=== PATIENT | male | born 1970 | race Caucasian/White ===

== ENCOUNTER 2018-07-17 11:31 | Inpatient (IN) ==
[2018-07-17] MEDS ORDERED: METHOCARBAMOL 100 MG/ML 10 ML VIAL IV STA (12:29)
[2018-07-17 12:41] LABS: Basophils # (auto) 0.06 K/uL (0-0.2); Basophils % (auto) 0.7 %; Eosinophils # (auto) 0.33 K/uL (0-0.5); Eosinophils % (auto) 3.7 %; Hematocrit (blood only) 44.7 % (42-52); Hemoglobin 16.2 g/dL (14.0-18.0); Immature Granulocytes # (auto) 0.02 K/uL (0.00-0.02); Immature Granulocytes % (auto) 0.2 %; Lymphocytes # (auto) 1.05 K/uL (1.2-3.4); Lymphocytes % (auto) 11.6 %; Mean Corpuscular Hgb Conc 36.2 g/dL (32-36); Mean Corpuscular Volume 92.5 fL (80-100); Mean Platelet Volume 8.7 fL (7.4-10.4); Monocytes # (auto) 0.63 K/uL (0.11-0.59); Neutrophils # (auto) 6.93 K/uL (1.4-6.5); Neutrophils % (auto) 76.8 %; Platelet Count 257 K/uL (130-400); RDW Coefficient of Variation 12.7 % (11.5-14.5); RDW Standard Deviation 43.2 fL (36.4-46.3); Red Blood Count 4.83 M/uL (4.7-6.1); White Blood Count 9.02 K/uL (4.8-10.8)
[2018-07-17 12:47] LABS: iSTAT Hemoglobin 16.3 g/dl (14.0-18.0); iSTAT Ionized Calcium 1.18 mmol/l (1.12-1.32)
[2018-07-17 12:50] LABS: Albumin Level 4.4 gm/dl (3.4-5.0); BUN Creatinine Ratio 13.5 (10-20); Calcium 9.4 mg/dl (8.5-10.1); Creatinine Clr Calc Pharmacy 99.1 ml/min; Est GFR (African American) 99.3; Est GFR (Non-African American) 85.7; Potassium 4.1 mmol/L (3.5-5.1)
[2018-07-17 12:52] LABS: Albumin Globulin Ratio 1.3 (0.9-2); Bilirubin,Total 1.3 mg/dl (0.1-1); Globulin 3.5 gm/dl (2.5-4.0); Total Protein 7.9 gm/dl (6.4-8.2)
[2018-07-17] MEDS ORDERED: OPTIRAY 320 125ml IV PRN (12:59)
--- NOTE | 2018-07-17 13:10 | CT Scan Report ---
CT OF THE CHEST WITHOUT CONTRAST AND CT ANGIOGRAPHY OF THE CHEST CLINICAL HISTORY: Chest pain. Evaluate for dissection. COMPARISON STUDY: Chest radiograph August 13, 2007. TECHNIQUE: Unenhanced and arterial phase imaging of the chest was performed. Intravenous injection 11 9 cc Optiray 320 IV was uneventful. Sagittal and coronal reconstructions were viewed as well as maxim al intensity projections on an independent 3-D workstation. Automated exposure control was utilized f or the study. A dose lowering technique was utilized adhering to the principles of ALARA. FINDINGS: Caliber of the thoracic aorta is normal. There is no intramural hematoma or thoracic aortic dissection. Size of the heart is normal. There is no pericardial effusion. There is at least moderat e coronary artery calcification. Central airways are patent. There is no consolidation to suggest pne umonia. No pneumothorax or pleural effusion is noted. There are multiple small solid low suspicion no dules, including a 6 mm right middle lobe nodule on image 174 of 296, a 5 mm subpleural nodule within the left lower lobe on image 250, a 4 mm right middle lobe nodule on image 190. Bony thorax and uppe r abdomen are unremarkable. Gallbladder is surgically absent. IMPRESSION: 1. No thoracic aortic dissection. 2. No acute intrathoracic findings. 3. At least moderate coronary artery calcification, greater than expected for age. 4. Several low suspicion but indeterminate solid pulmonary nodules measure up to 6 mm. These could be followed according to the attached recommendations. Please refer to below summary of Fleischner criteria recommendations for follow-up of incidental CT n odules (Teresa Mcdonnell, Guidelines for management of small pulmonary nodules detected on CT scans: A sta tement from the Fleischner Society, Radiology 237: [phone].) SOLID NODULES Solitary nodule size: <6 mm * low risk patients: no follow-up needed * high risk patients: optional CT at 12 months Solitary nodule size: 6-8 mm * low risk patients: follow-up at 6-12 months, then consider further follow-up at 18-24 months * high risk patients: initial follow-up CT at 6-12 months and then at 18-24 months if no change Solitary nodule size: >8 mm * either low or high risk patients - consider follow-up CT at 3 months, and/or CT-PET, and/or biopsy Multiple nodules size: <6 mm * low risk patients: no routine follow-up * high risk patients: optional CT at 12 months Multiple nodules size: 6-8 mm * low risk patients: follow-up at 3-6 months, then consider further follow-up at 18-24 months * high risk patients: follow-up at 3-6 months, then at 18-24 months if no change Electronically signed by: Aidan Hodges M.D. 07/17/2018 1:09 PM
[2018-07-17] MEDS ORDERED: CYCLOBENZAPRINE HCL 10 MG TAB PO STA (13:11)
[2018-07-17] MEDS ORDERED: CYCLOBENZAPRINE HCL 10 MG TAB PO ONE (13:12)
[2018-07-17] MEDS ORDERED: KETOROLAC 30 MG/ML VIAL IV STA (13:20)
[2018-07-17] MEDS ORDERED: NITROGLYCERIN SL 0.4 MG/TAB TAB ONE (14:04)
[2018-07-17] MEDS ORDERED: NITROGLYCERIN SL 0.4 MG/TAB TAB SL STA (14:05)
[2018-07-17] MEDS ORDERED: ACETAMINOPHEN 1000 MG/100 ML IV IV STA (14:41)
[2018-07-17] MEDS ORDERED: NITROGLYCERIN 2% OINTMENT 30GM TUBE EXT ONE (15:41)
--- NOTE | 2018-07-17 16:27 | History & Physical Report ---
Date of Service July 17, 2018 Assessment & Plan (1) CAD (coronary artery disease): Patient is a 47-year-old male with no known past medical history who presents with chest discomfort starting earlier today and was found to have moderate CAD. -Chest pain came on when lifting weights vigorously -Initial EKG with T wave inversion in inferior leads and subtle ST depression in II and aVF -Initial troponin negative but repeat troponin elevated at 0.28 -Chest CTA with at least moderate coronary artery calcification, greater than expected for age -Cardiac catheterization performed: * 70% ostial acute marginal branch vessel of RCA occluded * Otherwise, mild to moderate non-obstructive CAD -Given 75mg plavix this evening, scheduled for 75mg in AM -Started on Statin -Check troponin at 2200 -Medical therapy recommended (2) Tobacco abuse: Counselled on importance of tobacco cessation Pulmonary Nodule: Several pulmonary Nodules noted on CT scan Advise to quit smoking FU as outpatient DVT Ppx: SCDs for now Code status: FULL PCP: No PCP. Will need to establish care upon discharge. Dispo: Admitted to telemetry. Plan to return home once medically stable. Patient seen in collaboration with Dr. Mccarty. Please see addendum. History of Present Illness Chief Complaint: chest pain Primary Care Provider: NO PCP Patient is a 47-year-old male with no known past medical history who presents with chest discomfort starting earlier today. Patient was working out at gym and lifting weights when he developed sudden onset, central chest pain that he described as burning, constant and radiating to his back and bilateral shoulder blades. Denies any associated shortness of breath, nausea or vomiting. Has history of chest discomfort from torn muscles in the past, but that pain was less severe. When he presented to in the ED, was given Toradol, Flexeril and sublingual nitroglycerin with resolution of chest pain. Denies personal history of HTN, HLD, heart disease or diabetes. Chews tobacco daily and drinks approximately 56 beers daily. No family history of heart disease. Does not currently have a PCP. Initial EKG with T wave inversion in inferior leads and subtle ST depression in II and aVF. Initial troponin negative but repeat troponin elevated at 0.28. Chest CTA with at least moderate coronary artery calcification, greater than expected for age. ED physician consulted cardiology, and Dr. Byrd reviewed stat echo at bedside. No wall motion abnormality noted but due to EKG changes and elevated troponin, patient was taken for cardiac catheterization. Allergies Allergy/AdvReac Type Severity Reaction Status Date / Time Penicillins Allergy Unknown Verified 07/17/18 12:33 Home Medications Home Medications Medication Instructions Recorded Confirmed Type No Known Home Medications 07/17/18 07/17/18 History Past Med/Surg History Medical History Tobacco abuse (Chronic) Dyslipidemia, goal LDL below 70 (Chronic) Coronary artery calcification (Chronic) Coronary artery calcification (Chronic) Dyslipidemia, goal LDL below 70 (Chronic) Tobacco use disorder (Chronic) Family History Other No pertinent family history Social History Current Living Situation: Spouse and Family current occupational status: employed Other Information That Helps Us Care for You: No Feels Safe at Home: Yes Safety Concerns: Feels Safe At This Time Smoking Status: Never smoker Tobacco Type: smokeless tobacco Do You Dip or Chew Tobacco: Yes (1/2 can/day) Hx Alcohol Use: Yes Alcohol type: beer Alcohol Intake Frequency: 3 or more drinks per day Hx Substance Use: No Beliefs That Will Affect Care: None Communication Ability: Effective Electrochemist Required: No Review of Systems All systems reviewed & are unremarkable except as noted in HPI & below Physical Exam 2 Vital Signs (Past 24 Hours): Last Vital Signs Temp 36.6 C 07/17/18 11:33 Pulse 66 07/17/18 15:43 Resp 18 07/17/18 15:43 BP 137/94 07/17/18 15:43 Pulse Ox 98 07/17/18 15:43 Physical Exam: General Appearance: WD/WN, anxious appearing Head: normocephalic, atraumatic Eyes: normal inspection, PERRL, EOMI ENT: hearing grossly normal, pharynx normal (moist mucous membranes) Neck: supple, no JVD, no adenopathy Respiratory/Chest: lungs clear to auscultation. No wheezes, rales or rhonci. No respiratory distress or accessory muscle use Cardiovascular: regular rate, rhythm, no murmur, normal peripheral pulses Abdomen/GI: normal bowel sounds, soft, non-tender to palpation Extremities/Musculoskelatal: normal inspection, no calf tenderness, normal capillary refill, no pedal edema Neurologic/Psych: alert, normal mood/affect, oriented x 3 Skin: normal color, warm/dry Results & Data Laboratory Results Short CBC 07/17/18 Range/Units 12:00 WBC 9.02 (4.8-10.8) K/uL Hgb 16.2 (14.0-18.0) g/dL Hct 44.7 (42-52) % Plt Count 257 (130-400) K/uL BMP 07/17/18 12:00 Sodium 135 L Potassium 4.1 Chloride 102 Carbon Dioxide 22 BUN 14 Creatinine 1.04 Glucose 97 Calcium 9.4 Liver Function 07/17/18 Range/Units 12:00 Total Bilirubin 1.3 H (0.1-1) mg/dl AST 31 (15-37) U/L ALT 58 (12-78) U/L Alkaline Phosphatase 58 (45-117) U/L Albumin 4.4 (3.4-5.0) gm/dl Diagnostic Findings Chest CTA: IMPRESSION: 1. No thoracic aortic dissection. 2. No acute intrathoracic findings. 3. At least moderate coronary artery calcification, greater than expected for age. 4. Several low suspicion but indeterminate solid pulmonary nodules measure up to 6 mm. These could be followed according to the attached recommendations. ECG Findings: + ST depression (subtle depression in II and aVF) and + T-wave inversion (inferior leads) Code Status & VTE Plan Code Status FULL VTE Prophylaxis Plan VTE Prophylaxis will be ordered: Yes Supervising Physician Co-Signing Physician Notes Attending Note: Patient is seen and examined at bedside after the cardiac cath. Currently patient is chest pain free. Offers no complaints. On Exam patient is well built , lungs CTA, S1, S2, No mumur, benign abdomen, no pedal edema, AAAOX3, no focal deficits. I personally reviewed the chart. ECHO showed no wall motion abnormalities. Appreciate Cardiology Help. Risk factor modification for moderate CAD. Patient's care is coordinated with Elsa Rome PA-C. Please refer to the documentation above for details of patient's presentation and for discussion of other issues.
[2018-07-17] MEDS ORDERED: ASPIRIN CHEW 324 MG PO STA (16:31)
--- NOTE | 2018-07-17 16:31 | Cardiology Consultation ---
Date of Consultation July 17, 2018 Assessment & Plan (1) NSTEMI (non-ST elevated myocardial infarction): The risks, benefits, and alternatives to cardiac catheterization were discussed with the patient at length. Both he and his are agreeable to procedure and percutaneous intervention if indicated. He is a drug-eluting stent candidate. Will initiate intravenous heparin therapy, aspirinm and add high intensity statin, atorvastatin 80 mg daily. (2) Coronary artery calcification: (3) Dyslipidemia, goal LDL below 70: (4) Tobacco abuse: History of Present Illness Reason for Consultation: Elevated Trop Requesting Physician: Dr. Chris Cook Attending Physician: Dr. Mcfarland History of Present Illness 47-year-old male patient presents emergency department with chest and back discomfort. Patient has been exercising vigorously. Noted onset of substernal chest burning with radiation to his back. He was sent for CT angiogram of the chest to exclude presence of dissection. CTA was negative. Initial troponins undetectable. ECG on presentation demonstrates sinus rhythm with inferior T wave inversion as well as subtle ST depression in leads II and aVF. Patient treated with sublingual nitroglycerin, Nitropaste, Flexeril, and Toradol. Currently chest pain-free. A stat bedside 2D echocardiogram was performed demonstrating normal left ventricular wall motion. He is currently pain-free. Second set of troponins came back elevated at 0.28. Personal review of CT Corrie of the chest reveals extensive coronary artery calcification which is abnormal for patient age. Denies history of coronary disease, dyslipidemia, hypertension, rheumatic fever as a child. Denies family history of premature CAD. He chews snuff however does not smoke cigarettes. is present at bedside. Allergies Allergy/AdvReac Type Severity Reaction Status Date / Time Penicillins Allergy Unknown Verified 07/17/18 12:33 Home Medications Home Medications Medication Instructions Recorded Confirmed Type No Known Home Medications 07/17/18 07/17/18 History Patient History Medical History Coronary artery calcification Dyslipidemia, goal LDL below 70 No known health problems Family History Other No pertinent family history Social History Feels Safe at Home: Yes Smoking Status: Never smoker Review of Systems Pertinent positives noted per HPI, comprehensive 10 system review otherwise negative. Physical Exam 2 Vital Signs (Past 24 Hours): Last Vital Signs Temp 36.6 C 07/17/18 11:33 Pulse 66 07/17/18 15:43 Resp 18 07/17/18 15:43 BP 137/94 07/17/18 15:43 Pulse Ox 98 07/17/18 15:43 Physical Exam: General: NAD, AAO x3, well nourished. HEENT: Normocephalic. Atraumatic. Conjunctiva pink, no scleral icterus. Neck: No carotid bruits, the carotid upstrokes are brisk. No JVD. No HJR Heart: Regular normal S-1 and S-2 no S-3 or S-4 gallop. No murmurs or rub appreciated. PMI is not displaced. No RV heave. Lungs: Clear bilateral without rales , rhonchi, or wheeze. Abdomen: Normal bowel sounds. Soft. Nontender. No masses or organomegaly. No abdominal bruits. Extremities: No clubbing, cyanosis, or edema. Pulses: radial=2/4, Dorsalis pedis =2/4, posterior tibial=2/4. Neuro: Cranial nerves grossly intact. No focal motor deficit.
[2018-07-17] MEDS ORDERED: ASPIRIN CHEW 324 MG ONE (16:32)
--- NOTE | 2018-07-17 16:35 | Pre Anesthesia Assessment ---
Date of Service July 17, 2018 Pre Sedation Assessment Vital Signs Temp Pulse Pulse Resp BP BP Pulse Ox 07/17/18 15:43 66 18 137/94 98 07/17/18 13:48 70 18 154/97 H 98 07/17/18 12:38 97 07/17/18 11:33 36.6 C 78 20 148/98 H 100 Cardiovascular RRR, no murmur, no edema Respiratory normal respiratory effort, lungs clear to auscultation Pre-Sedation Airway Assessment Smoking Status: Never smoker Mallampati Class: II Procedure Planning Contraindications for Sedation: none Current Medications Reviewed: Yes Notes The planned sedation has been discussed with the patient. Informed Consent was obtained. I have identified the patient, determined the appropriateness of sedation and have assessed the patient immediately prior to the procedure. All medicine(s) and interventions are by my order.
[2018-07-17] MEDS ORDERED: HEPARIN 25000 UNIT/500 ML D5W IV ONE (16:40)
[2018-07-17] MEDS ORDERED: LIDOCAINE HCL 1% 20 ML VIAL ONE (16:42)
[2018-07-17] MEDS ORDERED: HEPARIN SOD 5,000 UNIT/0.5 ML VIAL ONE (16:44)
[2018-07-17] MEDS ORDERED: NiCARDipine HCL INJ 2.5 MG/ML 10 ML AMP ONE (17:37)
[2018-07-17] MEDS ORDERED: HEPARIN (PORCINE) 1000 UNIT/ML 10 ML (CATH LAB USE ONLY) ONE (17:37)
[2018-07-17] MEDS ORDERED: fentaNYL citrate 100 MCG/2 ML VIAL ONE (17:37)
[2018-07-17] MEDS ORDERED: MIDAZOLAM HCL 1 MG/ML 2ML VIAL ONE ×2 (17:37→17:52)
[2018-07-17] MEDS ORDERED: NITROGLYCERIN/D5W 100MCG/ML 20ML SYR ONE (17:38)
--- NOTE | 2018-07-17 18:38 | Cardiac Catheterization ---
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 End 1819. Sedation monitor: Yobani LO Procedural Complication(s) None Disposition PCU ACC Data: Agricultural Equipment Operator Cardiac Status Clinical evaluation leading to the procedure CAD Presenation: Non STEMI Anginal Classification: CCS IV Heart Failure: No Imaging Studies Past 6 Months: Yes Stress Studies Past 6 Months: No STEMI OR Non-STEMI Symptom Onset Date: 07/17/18 Symptom Onset Time: 13:29 Thrombolytics: No Coronary Anatomy Dominant: Right Left Main (% Stenosis): Normal LAD (% Stenosis): Proximal (20%), Mid (20%) and Distal (10%) D1 (% Stenosis): Proximal (20%) D2 (% Stenosis): Proximal (30%) and Mid (30%) Circumflex (% Stenosis): Mid (10-20% diffuse) OM1 (% Stenosis): Ostial (50% small 1-1.5mm vessel) RCA (% Stenosis): Proximal (30%) and Mid (Diffuse, calcified, 20-30%) R PDA (% Stenosis): Mid (30%) R PL1 (% Stenosis): Proximal (30%) R PL2 (% Stenosis): Normal AM (% Stenosis): Ostial (70%) Diagnostic Physicians Name: Kel Byrd DO Closure Device Recommendations: Medical Therapy and/or Counseling Intraprocedure Events Significant Disection: No Perforation: No
[2018-07-17] MEDS ORDERED: ACETAMINOPHEN 325 MG TAB PO PRN (18:41)
[2018-07-17] MEDS ORDERED: CLOPIDOGREL BISULFATE 75 MG TAB PO ONE (18:43)
--- NOTE | 2018-07-17 18:46 | Post Anesthesia Assessment ---
Date of Service July 17, 2018 Post Sedation Assessment Vital Signs Temp Pulse Pulse Resp BP BP Pulse Ox 07/17/18 18:30 75 18 138/80 07/17/18 18:25 72 18 144/80 H 98 07/17/18 15:43 66 18 137/94 98 07/17/18 13:48 70 18 154/97 H 98 07/17/18 12:38 97 07/17/18 11:33 36.6 C 78 20 148/98 H 100 Recovery Score Activity: Moves 4 extremities Respiration: Deep Breath/Cough Circulation: +/-20% PreAnes Value Consciousness: Fully Awake Oxygen Saturation: > 92% On Room Air Post Anesthesia Score: 10 Post Sedation Plan On clinical assessment, the patient appears to have tolerated the sedation without complications. Patient is recovering as anticipated. Patient will continue to be monitored by nursing and may be discharged when sedation discharge criteria are met per below protocol. Upon Completions of procedure and additional 15 minutes continue every 5 minute vital signs and the P.A.R. score; then discharge to a Phase I or Fast Track to Phase II per the following guidelines: * Discharge Patient to appropriate Phase II area if PAR is 8 or greater or return to pre- procedure baseline. The post - procedure orders will be as directed. * If PAR score is less than 8 or not return to pre-procedure baseline then patient will follow Phase I monitoring till PAR is reached for Phase II. The Phase I may be done in procedure room or may call to secure a Phase I area. * If naloxone or flumazenil are used for reversal, hold in Phase I for continued monitoring from when last reversal dose was given for a minimum of 60 minutes or longer pending the nurse and/or physician discretion of patient condition before discharge to Phase II. Please call the Sedation Physician to re-evaluate and complete post-note for discharge to Phase II area. Do NOT discharge from procedure sedation or Phase 1 until post- sedation evaluation note is complete by procedure /sedation MD Sedation Discharge Instructions to be given to the patient at discharge to home.
[2018-07-17] MEDS ORDERED: NITROGLYCERIN SL 0.4 MG/TAB TAB SL PRN (18:47)
[2018-07-17] MEDS ORDERED: ZOLPIDEM TARTRATE 5 MG TAB PO PRN (20:33)
[2018-07-17] MEDS ORDERED: ATORVASTATIN 40 MG TAB PO SCH (21:00)
--- NOTE | 2018-07-17 21:14 | Emergency Department Note ---
Entered by Alexandre Allison acting as a scribe for History of Present Illness General Chief complaint: Pain (Generalized) Stated complaint: BACK OF SHOULDER PAIN DOWN ARMS INTO BACK Source: patient History of Present Illness Provider complaint: chest pain Onset (ago): day(s) (today at 0930) Location: chest Radiation: back (between shoulder blades) Pain Consistency: + other (chest pain) Maximum Pain Intensity: 9 Quality: + dull and + other ("take your breath away pain") Exacerbated By: + other (laying down) Associated symptoms: no shortness of breath The patient is a 47 year old male who presents to the Emergency Room with complaints of chest pain that started while he was doing pull ups around 0930 today. The patient states he thought it was just heartburn, but now reports that it is now radiating to his back between his shoulder blades. He reports it is an dull, "take your breath away" pain. He states he has 3 herniated discs in his lower back, but states that this pain is different from his low back pain and that he has never experienced this before. He states that laying down worsens the pain. The patient admits to using tobacco. He denies any shortness of breath, radiation to any place other than his back, any long trips or immobilization, or any cocaine use. He also denies any medical history of clots or a family history of aneurysms. Home Medications Home Medications Medication Instructions Recorded Confirmed Type No Known Home Medications 07/17/18 07/17/18 History Allergies Allergy/AdvReac Type Severity Reaction Status Date / Time Penicillins Allergy Unknown Verified 07/17/18 12:33 Past Med/Surg History Medical History Tobacco abuse (Chronic) Dyslipidemia, goal LDL below 70 (Chronic) Coronary artery calcification (Chronic) Coronary artery calcification (Chronic) Dyslipidemia, goal LDL below 70 (Chronic) Tobacco use disorder (Chronic) Family History Other No pertinent family history Social History Current Living Situation: Spouse and Family current occupational status: employed Other Information That Helps Us Care for You: No Feels Safe at Home: Yes Safety Concerns: Feels Safe At This Time Smoking Status: Never smoker Tobacco Type: smokeless tobacco Do You Dip or Chew Tobacco: Yes (1/2 can/day) Hx Alcohol Use: Yes Alcohol type: beer Alcohol Intake Frequency: 3 or more drinks per day Hx Substance Use: No Beliefs That Will Affect Care: None Communication Ability: Effective Cnc Machinist Required: No Review of Systems See HPI for pertinent positives & negatives. and A total of 10 systems reviewed and were otherwise negative Physical Exam Vital Signs Vital Signs - 24 hr 07/17/18 11:33 07/17/18 12:38 07/17/18 13:48 Temperature 36.6 C Temperature Source Oral Sepsis Recent Fever Within 48 Hours No Sepsis Action Taken by Nursing No Action Required Pulse Rate 78 Pulse Rate [Left Brachial] 70 Pulse Rhythm Regular Pulse Rhythm [Left Brachial] Pulse Strength [Left Brachial] Respiratory Rate 20 18 Respiratory Effort / Characteristics Non-Labored Non-Labored Spontaneous Respiratory Depth Normal Normal Respiratory Pattern Regular Blood Pressure 148/98 H Blood Pressure [Left Arm] 154/97 H Blood Pressure Mean 114 Blood Pressure Mean [Left Arm] 116 Blood Pressure Position [Left Arm] Lying Pulse Oximetry 100 97 98 Oxygen Delivery Method Room Air Room Air Room Air 07/17/18 15:43 07/17/18 18:25 07/17/18 18:30 Temperature Temperature Source Sepsis Recent Fever Within 48 Hours Sepsis Action Taken by Nursing Pulse Rate 69 Pulse Rate [Left Brachial] 66 72 75 Pulse Rhythm Pulse Rhythm [Left Brachial] Regular Regular Pulse Strength [Left Brachial] Normal Normal Respiratory Rate 18 18 18 Respiratory Effort / Characteristics Non-Labored Spontaneous Non-Labored Spontaneous Non-Labored Spontaneous Respiratory Depth Normal Normal Normal Respiratory Pattern Regular Regular Regular Blood Pressure Blood Pressure [Left Arm] 137/94 144/80 H 138/80 Blood Pressure Mean Blood Pressure Mean [Left Arm] 108 101 99 Blood Pressure Position [Left Arm] Lying Sitting Sitting Pulse Oximetry 98 98 Oxygen Delivery Method Room Air Room Air Room Air 07/17/18 18:46 07/17/18 19:05 07/17/18 19:13 Temperature 37.2 C 37.1 C 37.2 C Temperature Source Oral Oral Oral Sepsis Recent Fever Within 48 Hours Sepsis Action Taken by Nursing Pulse Rate Pulse Rate [Left Brachial] 66 63 68 Pulse Rhythm Pulse Rhythm [Left Brachial] Pulse Strength [Left Brachial] Respiratory Rate 17 19 17 Respiratory Effort / Characteristics Respiratory Depth Respiratory Pattern Blood Pressure Blood Pressure [Left Arm] 135/77 133/83 133/82 Blood Pressure Mean Blood Pressure Mean [Left Arm] 96 99 99 Blood Pressure Position [Left Arm] Lying Lying Lying Pulse Oximetry 98 63 L 98 Oxygen Delivery Method Room Air Room Air 07/17/18 19:26 07/17/18 20:00 07/17/18 20:29 Temperature 37.2 C 36.7 C 37.1 C Temperature Source Oral Oral Oral Sepsis Recent Fever Within 48 Hours Sepsis Action Taken by Nursing Pulse Rate Pulse Rate [Left Brachial] 64 68 65 Pulse Rhythm Pulse Rhythm [Left Brachial] Pulse Strength [Left Brachial] Respiratory Rate 17 18 19 Respiratory Effort / Characteristics Respiratory Depth Respiratory Pattern Blood Pressure Blood Pressure [Left Arm] 130/73 142/80 H 170/83 H Blood Pressure Mean Blood Pressure Mean [Left Arm] 92 100 112 Blood Pressure Position [Left Arm] Lying Lying Lying Pulse Oximetry 98 96 98 Oxygen Delivery Method Room Air Room Air Room Air Constitutional: Vital signs reviewed. Eyes: Pupils are equal round reactive to light. Conjunctiva are noninjected. ENT: Pharynx is clear without erythema or exudate. Mucous membranes are moist. Neck supple without meningeal signs. Respiratory: Clear to auscultation bilaterally. Breath sounds are equal bilaterally. Cardiovascular: Regular rate and rhythm. No rubs or gallops. Normal distal pulses and equivalent blood pressures. GI: Soft, nondistended and nontender. Bowel sounds are present. Musculoskeletal: No peripheral edema. No lower extremity tenderness. Spasm of the rhomboid muscles bilaterally. Integumentary: No cyanosis. Neurological: The patient is awake and alert. No focal deficits. Psychiatric: Normal affect. Course 1224: Past medical records reviewed. The patient was evaluated in room B3, and a complete history and physical examination were performed. 1402: I reevaluated the patient and he states that he is still having tightness in his chest and in his back. The patient states he had a difficult time putting up hi arms for the CT scan. 1437: I reevaluated the patient and he reports that there was absolutely no change in his symptoms with the nitro glyceride. He states that pressing on his back and chest muscles does help. We will do a second troponin. 1530: I spoke with Joycelyn Cerna PA-C. 1535: I spoke with the patient about his response to the troponin and he reports he still has chest pain that he rates as a 4/10 in severity as well as back pain. We will do a repeat ECG and I will page cardiology. 1539: I spoke with [facility]. I will order an echo cardiogram and he will evaluate the results. 1550: I spoke with hospitalist about different cardiology requests. Dr. Joe requested to hold the Heparin for now. 1604: I spoke with [facility], and he reports that he did not see any wild abnormalities on the echo cardiogram. 1607: I checked on the patient and he reports that his chest pain has resolved. 1616: I spoke with [facility], and he stated that he will take the patient to the cardiac catheterization lab. 1633: I spoke with [facility], and he said to start the patient on Heparin. Administered Medications Discontinued Medications Acetaminophen (Ofirmev) 1,000 mg IV NOW STA Stop: 07/17/18 14:42 Last Admin: 07/17/18 14:53 Dose: 1,000 mg Aspirin (Aspirin) Confirm Administered Dose 324 mg .ROUTE .STK-MED ONE Stop: 07/17/18 16:33 Last Admin: 07/17/18 16:47 Dose: 324 mg Clopidogrel Bisulfate (Plavix) 75 mg PO NOW ONE Stop: 07/17/18 18:44 Last Admin: 07/17/18 19:34 Dose: 75 mg Cyclobenzaprine HCl (Flexeril) 10 mg PO NOW STA Stop: 07/17/18 13:12 Last Admin: 07/17/18 13:17 Dose: 10 mg Cyclobenzaprine HCl (Flexeril) Confirm Administered Dose 10 mg PO .STK-MED ONE Stop: 07/17/18 13:13 Last Admin: 07/17/18 13:17 Dose: Not Given Fentanyl Citrate (Fentanyl Citrate) Confirm Administered Dose 100 mcg .ROUTE .STK-MED ONE Stop: 07/17/18 17:38 Last Increment: 07/17/18 18:18 Dose: 25 mcg Heparin Sodium (Porcine) (Heparin Sodium (Porcine)) Confirm Administered Dose 10 ,000 units .ROUTE .STK-MED ONE Stop: 07/17/18 16:45 Last Admin: 07/17/18 16:47 Dose: Not Given Heparin Sodium (Porcine) (Heparin Iv Bolus (Lithographic Plate Maker Use Only)) Confirm Administered Dose 10,000 units .ROUTE .STK-MED ONE Stop: 07/17/18 17:38 Last Admin: 07/17/18 18:18 Dose: 5,000 units Heparin Sodium/Dextrose () 1 ea N/A NOW STA; Protocol Stop: 07/17/18 16:35 Last Admin: 07/17/18 16:47 Dose: 1 ea Heparin Sodium/Dextrose (Heparin Sodium/Dextrose) Confirm Administered Dose 25, 000 units IV .STK-MED ONE Stop: 07/17/18 16:41 Last Admin: 07/17/18 16:46 Dose: Not Given Heparin Sodium/Sodium Chloride (Heparin Sod/Nss 2 Units/Ml) Confirm Administered Dose 2,000 units IV .STK-MED ONE Stop: 07/17/18 17:39 Last Admin: 07/17/18 17:51 Dose: 2,000 units Ioversol (Optiray 320 125ml) 119 ml IV ONCE PRN PRN Reason: Interaction Checking Stop: 07/21/18 12:58 Last Admin: 07/17/18 12:59 Dose: 119 ml Ketorolac Tromethamine (Toradol) 10 mg IV NOW Stop: 07/17/18 13:21 Last Admin: 07/17/18 13:35 Dose: 10 mg Lidocaine HCl (Xylocaine 1% (Local)) Confirm Administered Dose 20 ml .ROUTE .STK -MED ONE Stop: 07/17/18 16:43 Last Admin: 07/17/18 17:49 Dose: 20 ml Methocarbamol (Robaxin) 1,000 mg IV NOW STA Stop: 07/17/18 12:30 Last Admin: 07/17/18 13:16 Dose: Not Given Midazolam HCl (Versed) Confirm Administered Dose 2 mg .ROUTE .STK-MED ONE Stop: 07/17/18 17:38 Last Admin: 07/17/18 18:18 Dose: 3 mg Midazolam HCl (Versed) Confirm Administered Dose 2 mg .ROUTE .STK-MED ONE Stop: 07/17/18 17:53 Last Admin: 07/17/18 18:19 Dose: Not Given Nicardipine HCl (Cardene) Confirm Administered Dose 25 mg .ROUTE .STK-MED ONE Stop: 07/17/18 17:38 Last Admin: 07/17/18 17:51 Dose: 25 mg Nitroglycerin (Nitrostat) Confirm Administered Dose 0.4 mg .ROUTE .STK-MED ONE Stop: 07/17/18 14:05 Last Admin: 07/17/18 14:07 Dose: Not Given Nitroglycerin (Nitrostat) 0.4 mg SL NOW STA Stop: 07/17/18 14:06 Last Admin: 07/17/18 14:07 Dose: 0.4 mg Nitroglycerin (Nitro-Bid 2%) 1 inch EXT NOW ONE Stop: 07/17/18 15:42 Last Admin: 07/17/18 15:56 Dose: 1 inch Nitroglycerin/Dextrose (Nitroglycerin/D5w 100 Mcg/Ml 20ml Syringe) Confirm Administered Dose 2,000 mcg .ROUTE .STK-MED ONE Stop: 07/17/18 17:39 Last Admin: 07/17/18 17:51 Dose: 2,000 mcg Medical Decision Making Differential Diagnosis Muscle spasm, aortic dissection, pulmonary embolism, [place], GERD. Medical Records Attestation: I reviewed the patient's medical records. Home Medications Current Medication List: was personally reviewed by me Laboratory Data Attestation: I reviewed the patient's lab results. Result diagrams: 07/17/18 12:00 07/17/18 12:00 Lab Results 07/17/18 07/17/18 07/17/18 Range/Units 12:00 12:00 12:33 WBC 9.02 (4.8-10.8) K/uL RBC 4.83 (4.7-6.1) M/uL Hgb 16.2 (14.0-18.0) g/dL POC Hgb 16.3 (14.0-18.0) g/dl Hct 44.7 (42-52) % POC Hct 48 (42-52) % MCV 92.5 (80-100) fL MCH 33.5 (25-34) pg MCHC 36.2 H (32-36) g/dL RDW Std Deviation 43.2 (36.4-46.3) fL RDW Coeff of Lorraine 12.7 (11.5-14.5) % Plt Count 257 (130-400) K/uL MPV 8.7 (7.4-10.4) fL Immature Gran % (Auto) 0.2 % Neut % (Auto) 76.8 % Lymph % (Auto) 11.6 % [place] % (Auto) 7.0 % Eos % (Auto) 3.7 % Baso % (Auto) 0.7 % Immature Gran # (Auto) 0.02 (0.00-0.02) K/uL Neut # (Auto) 6.93 H (1.4-6.5) K/uL Lymph # (Auto) 1.05 L (1.2-3.4) K/uL [place] # (Auto) 0.63 H (0.11-0.59) K/uL Eos # (Auto) 0.33 (0-0.5) K/uL Baso # (Auto) 0.06 (0-0.2) K/uL POC Sodium 137 (135-144) mEq/L Sodium 135 L (136-145) mmol/L POC Potassium 4.0 (3.3-5.0) mEq/L Potassium 4.1 (3.5-5.1) mmol/L POC Chloride 100 L (101-112) mEq/L Chloride 102 (98-107) mmol/L Carbon Dioxide 22 (21-32) mmol/L POC Total CO2 22 L (24-31) mEq/l Anion Gap 10.0 (3-11) POC Anion Gap 20.0 (16-25) mmol/L POC BUN 14 (7-18) mg/dl BUN 14 (7-18) mg/dl Creatinine 1.04 (0.6-1.4) mg/dl POC Creatinine 1.2 (0.6-1.3) mg/dl Est Cr Clr Drug Dosing 99.1 ml/min Est GFR ( Amer) 99.3 Est GFR (Non-Af Amer) 85.7 BUN/Creatinine Ratio 13.5 (10-20) Glucose 97 (70-99) mg/dl POC Glucose (other) 95 (70-99) mg/dl Calcium 9.4 (8.5-10.1) mg/dl POC Ioniz Calcium William 1.18 (1.12-1.32) mmol/l Total Bilirubin 1.3 H (0.1-1) mg/dl AST 31 (15-37) U/L ALT 58 (12-78) U/L Alkaline Phosphatase 58 (45-117) U/L POC Troponin I (0-0.045) ng/ml Total Protein 7.9 (6.4-8.2) gm/dl Albumin 4.4 (3.4-5.0) gm/dl Globulin 3.5 (2.5-4.0) gm/dl Albumin/Globulin Ratio 1.3 (0.9-2) Lipase 169 (73-393) U/L 07/17/18 07/17/18 Range/Units 12:36 14:54 WBC (4.8-10.8) K/uL RBC (4.7-6.1) M/uL Hgb (14.0-18.0) g/dL POC Hgb (14.0-18.0) g/dl Hct (42-52) % POC Hct (42-52) % MCV (80-100) fL MCH (25-34) pg MCHC (32-36) g/dL RDW Std Deviation (36.4-46.3) fL RDW Coeff of Lorraine (11.5-14.5) % Plt Count (130-400) K/uL MPV (7.4-10.4) fL Immature Gran % (Auto) % Neut % (Auto) % Lymph % (Auto) % [place] % (Auto) % Eos % (Auto) % Baso % (Auto) % Immature Gran # (Auto) (0.00-0.02) K/uL Neut # (Auto) (1.4-6.5) K/uL Lymph # (Auto) (1.2-3.4) K/uL [place] # (Auto) (0.11-0.59) K/uL Eos # (Auto) (0-0.5) K/uL Baso # (Auto) (0-0.2) K/uL POC Sodium (135-144) mEq/L Sodium (136-145) mmol/L POC Potassium (3.3-5.0) mEq/L Potassium (3.5-5.1) mmol/L POC Chloride (101-112) mEq/L Chloride (98-107) mmol/L Carbon Dioxide (21-32) mmol/L POC Total CO2 (24-31) mEq/l Anion Gap (3-11) POC Anion Gap (16-25) mmol/L POC BUN (7-18) mg/dl BUN (7-18) mg/dl Creatinine (0.6-1.4) mg/dl POC Creatinine (0.6-1.3) mg/dl Est Cr Clr Drug Dosing ml/min Est GFR ( Amer) Est GFR (Non-Af Amer) BUN/Creatinine Ratio (10-20) Glucose (70-99) mg/dl POC Glucose (other) (70-99) mg/dl Calcium (8.5-10.1) mg/dl POC Ioniz Calcium William (1.12-1.32) mmol/l Total Bilirubin (0.1-1) mg/dl AST (15-37) U/L ALT (12-78) U/L Alkaline Phosphatase (45-117) U/L POC Troponin I < 0.03 0.28 H (0-0.045) ng/ml Total Protein (6.4-8.2) gm/dl Albumin (3.4-5.0) gm/dl Globulin (2.5-4.0) gm/dl Albumin/Globulin Ratio (0.9-2) Lipase (73-393) U/L Imaging Data Radiologist's Impression: Radiology results as stated below per my review and the radiologist's interpretation: CT OF THE CHEST WITHOUT CONTRAST AND CT ANGIOGRAPHY OF THE CHEST CLINICAL HISTORY: Chest pain. Evaluate for dissection. COMPARISON STUDY: Chest radiograph August 13, 2007. TECHNIQUE: Unenhanced and arterial phase imaging of the chest was performed. Intravenous injection 119 cc Optiray 320 IV was uneventful. Sagittal and coronal reconstructions were viewed as well as maximal intensity projections on an independent 3-D workstation. Automated exposure control was utilized for the study. A dose lowering technique was utilized adhering to the principles of ALARA. FINDINGS: Caliber of the thoracic aorta is normal. There is no intramural hematoma or thoracic aortic dissection. Size of the heart is normal. There is no pericardial effusion. There is at least moderate coronary artery calcification. Central airways are patent. There is no consolidation to suggest pneumonia. No pneumothorax or pleural effusion is noted. There are multiple small solid low suspicion nodules, including a 6 mm right middle lobe nodule on image 174 of 296, a 5 mm subpleural nodule within the left lower lobe on image 250, a 4 mm right middle lobe nodule on image 190. Bony thorax and upper abdomen are unremarkable. Gallbladder is surgically absent. IMPRESSION: 1. No thoracic aortic dissection. 2. No acute intrathoracic findings. 3. At least moderate coronary artery calcification, greater than expected for age. 4. Several low suspicion but indeterminate solid pulmonary nodules measure up to 6 mm. These could be followed according to the attached recommendations. Please refer to below summary of Fleischner criteria recommendations for follow- up of incidental CT nodules (Teresa Mcdonnell, Guidelines for management of small pulmonary nodules detected on CT scans: A statement from the Fleischner Society , Radiology 237: [phone].) SOLID NODULES Solitary nodule size: <6 mm * low risk patients: no follow-up needed * high risk patients: optional CT at 12 months Solitary nodule size: 6-8 mm * low risk patients: follow-up at 6-12 months, then consider further follow- up at 18-24 months * high risk patients: initial follow-up CT at 6-12 months and then at 18-24 months if no change Solitary nodule size: >8 mm * either low or high risk patients - consider follow-up CT at 3 months, and/or CT-PET, and/or biopsy Multiple nodules size: <6 mm * low risk patients: no routine follow-up * high risk patients: optional CT at 12 months Multiple nodules size: 6-8 mm * low risk patients: follow-up at 3-6 months, then consider further follow-up at 18-24 months * high risk patients: follow-up at 3-6 months, then at 18-24 months if no change Electronically signed by: Aidan Hodges M.D. 07/17/2018 1:09 PM ECG Data Attestation: I personally reviewed and interpreted this ECG as follows: Indication: chest pain Rate (beats per minute): 77 Rhythm: normal sinus Findings: + other (no PVC) and + T-wave inversion (infeorior leads); no ST elevation Comparison ECG Date: from (2007) Change: the following changes noted (all findings are new) Additional Comments: REPEAT ECG #1: Normal sinus rhythm, 77, no ST-elevation, no PVCs, T-wave inversion in inferior leads. REPEAT ECG #2: Normal sinus rhythm, 60, persistent peaked T-waves in V2 and 3, T-wave is now upright in AVF and still inverted in 3. Blood Pressure Blood Pressure Findings: Elevated blood pressure Blood Pressure Disposition: Referred to patients primary care provider MDM Narrative I did perform a limited focused review of portions of the patient's old chart on the electronic medical record. The patient has had no recent pertinent visits to this hospital. I did evaluate the patient as noted above. The patient is presenting with chest and back pain which appears to be musculoskeletal in nature. He states it is worse when he moves his arms around and feels better when I palpate his muscles which demonstrates some degree of spasm. The chest pain occurred after he was doing an hour of pull-ups. IV access was established. The patient was placed on a continuous ekg monitor. I did treat the patient with Flexeril and Toradol IV. I did order and personally review the patient's 12-lead EKG as described above. The patient has T wave inversions in leads III and aVF. He has some hyperacute T waves in the precordial leads as well. The T wave inversion in lead aVF is new. I did order and review the patient's blood work as noted in the electronic medical record. Initial troponin is negative. I did order a stat CT of the chest. I did review the images myself as well as the radiology report as described above. He has some pulmonary nodules. He has no evidence of aortic dissection. He does have coronary artery calcifications greater than expected for his age. I did reassess the patient. He does state that his pain is better with the medications although he still rates it a 4 out of 10 in severity. He does state that lifting his arms up for the CAT scan made his back pain worse. He also states that when I press on his muscles on his chest and his back it feels better. I did repeat another twelve- lead EKG which per my interpretation shows persistent T wave inversions. I therefore treated patient with nitroglycerin given his abnormal EKG as well as findings on CAT scan regarding his coronary arteries. He stated that the nitroglycerin did not appeared to help very much. He thought maybe it helped a little bit in the beginning but then did not do very much at all. I did discuss the test results with the patient and his . I did order a second troponin which came back elevated at 0.28. It is doubtful that this is secondary to his vigorous exercise because the patient the similar exercises about 5 times a week. The last time he exercised vigorously was 2 days ago. His initial troponin was negative likely suggesting that this was not due to muscle breakdown. I did treat him with nitroglycerin paste as he still has some residual chest pain. I did discuss case with cardiology who came and evaluated patient in the ED. A stat echocardiogram was performed which showed no wall motion abnormalities. I did do a third EKG which per my interpretation shows resolution of the T wave inversion in lead aVF only. On reassessment the patient states his chest pain and back pain are completely resolved. The staff midwife/apprenticeship director decided that he should go to the cardiac catheterization lab for further care. I did start the patient on IV heparin. I did discuss the case with the hospitalist and child support case officer. Impression & Plan ACS (acute coronary syndrome) Critical Care Time I have personally spent 40 minutes of critical care time in the direct management of this patient. This includes bedside care, interpretation of diagnostic studies and testing, discussion with consultants and patient, and other required patient management activities. This time is in excess of all separately billable procedures. Critical Care Time: Yes Total Critical Care Time: 40 Discharge Plan Visit Data *Final* Discharge Date/Time: 07/17/18 17:31 Chief Complaint: Pain (Generalized) Stated Complaint: BACK OF SHOULDER PAIN DOWN ARMS INTO BACK ED Provider: Kel Augustin Discharge Problem: ACS (acute coronary syndrome) Patient Disposition: Admitted As Inpatient Discharge Instructions Interventions: ED Discharge Assessment Last Done: 07/17/18 17:31 The scribe's documentation has been prepared under my direction and personally reviewed by me in its entirety. I confirm that the note above accurately reflects all work, treatment, procedures, and medical decision making performed by me.
[2018-07-18 06:43] LABS: Basophils # (auto) 0.04 K/uL (0-0.2); Basophils % (auto) 0.6 %; Eosinophils # (auto) 0.44 K/uL (0-0.5); Eosinophils % (auto) 6.9 %; Hematocrit (blood only) 44.2 % (42-52); Hemoglobin 15.8 g/dL (14.0-18.0); Lymphocytes # (auto) 1.92 K/uL (1.2-3.4); Mean Corpuscular Hgb Conc 35.7 g/dL (32-36); Mean Corpuscular Volume 93.1 fL (80-100); Mean Platelet Volume 8.5 fL (7.4-10.4); Monocytes # (auto) 0.58 K/uL (0.11-0.59); Monocytes % (auto) 9.1 %; Neutrophils # (auto) 3.42 K/uL (1.4-6.5); Neutrophils % (auto) 53.4 %; Platelet Count 258 K/uL (130-400); RDW Coefficient of Variation 12.7 % (11.5-14.5); RDW Standard Deviation 43.2 fL (36.4-46.3); Red Blood Count 4.75 M/uL (4.7-6.1)
[2018-07-18 07:13] LABS: BUN Creatinine Ratio 11.6 (10-20); Calcium 8.9 mg/dl (8.5-10.1); Creatinine Clr Calc Pharmacy 100.8 ml/min; Est GFR (African American) 102.9; Est GFR (Non-African American) 88.8
[2018-07-18] MEDS ORDERED: CLOPIDOGREL BISULFATE 75 MG TAB PO SCH (09:00)
[2018-07-18] MEDS ORDERED: METOPROLOL SUCC 25MG EXT REL TAB PO SCH (10:15)
--- NOTE | 2018-07-18 12:58 | Cardiology Progress Note ---
Date of Service July 18, 2018 Assessment & Plan (1) NSTEMI (non-ST elevated myocardial infarction): Cardiac catheterization demonstrating moderate CAD. There is a 70% stenosis of ostial acute marginal branch vessel. Medical management recommended. Patient will continue dual antiplatelet therapy for 1 year. High- dose atorvastatin added. Repeat fasting lipid panel and ALT in 6 weeks. Continue low-dose Toprol-XL. Close cardiology follow-up will be scheduled in 1 week. Post catheterization activity restrictions discussed. Also recommend patient consume no more than 2 alcoholic beverages in any one sitting. Dietary modifications recommended including limiting intake of saturated fat, cholesterol, and simple sugars. All questions answered to to the satisfaction of both the patient and his family. He may be discharged home at this time. (2) Coronary artery calcification: (3) Dyslipidemia, goal LDL below 70: (4) Tobacco abuse: Subjective Patient seen and examined at the bedside. No recurrent chest discomfort overnight. Troponin trending downward to 12.6 this afternoon. ECG within normal limits. 4 beat mirza of nonsustained ventricular tachycardia recorded overnight. Patient has questionings regarding activity restrictions. Also questions regarding alcohol intake. Family present at bedside. Review of Systems All systems reviewed & are unremarkable except as noted in HPI & below Physical Exam 2 Vital Signs (Past 24 Hours): Last Vital Signs Temp 36.5 C 07/18/18 11:54 Pulse 69 07/18/18 11:54 Resp 20 07/18/18 11:54 BP 151/95 H 07/18/18 11:54 Pulse Ox 97 07/18/18 11:54 Physical Exam: General: NAD, AAO x3, well nourished. HEENT: Normocephalic. Atraumatic. Conjunctiva pink, no scleral icterus. Neck: No carotid bruits, the carotid upstrokes are brisk. No JVD. No HJR Heart: Regular normal S-1 and S-2 no S-3 or S-4 gallop. No murmurs or rub appreciated. PMI is not displaced. No RV heave. Lungs: Clear bilateral without rales , rhonchi, or wheeze. Abdomen: Normal bowel sounds. Soft. Nontender. No masses or organomegaly. No abdominal bruits. Extremities: No clubbing, cyanosis, or edema. Pulses: radial=2/4, Dorsalis pedis =2/4, posterior tibial=2/4. Neuro: Cranial nerves grossly intact. No focal motor deficit.
--- NOTE | 2018-07-18 13:32 | Hospitalist Progress Note ---
Date of Service July 18, 2018 Assessment & Plan (1) CAD (coronary artery disease): Patient is a 47-year-old male with no known past medical history who presents with chest discomfort starting earlier today and was found to have moderate CAD on Cardiac Cath. Chest Pain R/O ACS: --CTA:No thoracic aortic dissection. No acute intrathoracic findings. At least moderate coronary artery calcification, greater than expected for age. Several low suspicion but indeterminate solid pulmonary nodules measure up to 6 mm. These could be followed according to the attached recommendations. --S/P Cardiac Cath: There is a 70% stenosis of ostial acute marginal branch vessel. Medical management recommended. Dual antiplatelet therapy for 1 yr Lipitor started Also started on Metoprolol Needs follow up with Cardiology in 1 week Needs repeat Lipid panel test in 6 weeks Lifestyle modifications (2) Tobacco abuse: Counselled on importance of tobacco cessation Pulmonary Nodule: Several pulmonary Nodules noted on CT scan Advise to quit smoking FU as outpatient DVT Px: SCDs Code status: FULL PCP: No PCP. Patient prefers to establish PCP of his preference upon discharge Subjective Patient is seen and examined at bedside Doing well today No recurrence of chest pain, shoulder pain Denies dyspnea, dizziness, nausea offers no complaints Physical Exam 2 Vital Signs (Past 24 Hours): Last Vital Signs Temp 36.5 C 07/18/18 11:54 Pulse 69 07/18/18 11:54 Resp 20 07/18/18 11:54 BP 151/95 H 07/18/18 11:54 Pulse Ox 97 07/18/18 11:54 Physical Exam: Physical Exam: Vitals signs as noted above General Appearance:Moderately built and nourished, no apparent distress Head: normocephalic, Atraumatic Eyes: normal inspection, EOMI Neck: supple, Trachea midline Respiratory/Chest: Normal breath sounds, CTA Cardiovascular: S1, S2, No murmur Abdomen/GI:Soft, Non tender, Bowel sounds present Extremities/Musculoskelatal:normal inspection, no edema Neurologic/Psych:AAOX3, grossly no focal neurological deficits Skin: normal color, warm Results & Data Laboratory Results Short CBC 07/18/18 Range/Units 06:07 WBC 6.40 (4.8-10.8) K/uL Hgb 15.8 (14.0-18.0) g/dL Hct 44.2 (42-52) % Plt Count 258 (130-400) K/uL BMP 07/18/18 06:07 Sodium 138 Potassium 4.0 Chloride 104 Carbon Dioxide 25 BUN 12 Creatinine 1.01 Glucose 96 Calcium 8.9 Cardiac Enzymes 07/17/18 07/18/18 07/18/18 Range/Units 21:48 06:07 12:01 Troponin I 10.700 H* 20.600 H* 12.300 H* (0-0.045) ng/ml
--- NOTE | 2018-07-18 13:44 | Discharge Summary ---
Date of Service July 18, 2018 Admission HPI Per Admitting Provider Patient is a 47-year-old male with no known past medical history who presents with chest discomfort starting earlier today. Patient was working out at gym and lifting weights when he developed sudden onset, central chest pain that he described as burning, constant and radiating to his back and bilateral shoulder blades. Denies any associated shortness of breath, nausea or vomiting. Has history of chest discomfort from torn muscles in the past, but that pain was less severe. When he presented to in the ED, was given Toradol, Flexeril and sublingual nitroglycerin with resolution of chest pain. Denies personal history of HTN, HLD, heart disease or diabetes. Chews tobacco daily and drinks approximately 56 beers daily. No family history of heart disease. Does not currently have a PCP. Initial EKG with T wave inversion in inferior leads and subtle ST depression in II and aVF. Initial troponin negative but repeat troponin elevated at 0.28. Chest CTA with at least moderate coronary artery calcification, greater than expected for age. ED physician consulted cardiology, and Dr. Byrd reviewed stat echo at bedside. No wall motion abnormality noted but due to EKG changes and elevated troponin, patient was taken for cardiac catheterization. Admission Exam Per Admitting Provider General Appearance: WD/WN, anxious appearing Head: normocephalic, atraumatic Eyes: normal inspection, PERRL, EOMI ENT: hearing grossly normal, pharynx normal (moist mucous membranes) Neck: supple, no JVD, no adenopathy Respiratory/Chest: lungs clear to auscultation. No wheezes, rales or rhonci. No respiratory distress or accessory muscle use Cardiovascular: regular rate, rhythm, no murmur, normal peripheral pulses Abdomen/GI: normal bowel sounds, soft, non-tender to palpation Extremities/Musculoskelatal: normal inspection, no calf tenderness, normal capillary refill, no pedal edema Neurologic/Psych: alert, normal mood/affect, oriented x 3 Skin: normal color, warm/dry Principal Diagnosis Discharge Information Discharge Diagnosis Moderate coronary artery disease Discharge Goals Decrease discomfort,Improve disease control, Improve function Discharge Activity Limitations Per instructions/follow-up Discharge Data Allergies Allergy/AdvReac Type Severity Reaction Status Date / Time Penicillins Allergy Unknown Verified 07/17/18 12:33 Consultations 07/17/18 15:36 ED Decision to Admit Stat 07/17/18 16:24 Consult Cardiac Catheterization Stat 07/17/18 18:47 Consult Cardiology Routine Procedures Performed Operation Date: 07/17/18 17:00 Actual Procedures p Cath, Left with Cors and Vent - Kel Byrd DO s Cineradiography w/Routine Exam - Kel Byrd DO CTA: 1. No thoracic aortic dissection. 2. No acute intrathoracic findings. 3. At least moderate coronary artery calcification, greater than expected for age. 4. Several low suspicion but indeterminate solid pulmonary nodules measure up to 6 mm. These could be followed according to the attached recommendations. Cardiac Cath: Summary of Findings 70% ostial acute marginal branch vessel of RCA Otherwise, mild to moderate non-obstructive CAD Ordered Studies 07/17/18 12:29 CT angio chest wo/w con Stat 07/17/18 17:11 CL Cath Imgs for PACS use only Stat Hospital Course (1) CAD (coronary artery disease): Patient is a 47-year-old male with no known past medical history who presents with chest discomfort starting earlier today and was found to have moderate CAD on Cardiac Cath. Chest Pain R/O ACS: --CTA:No thoracic aortic dissection. No acute intrathoracic findings. At least moderate coronary artery calcification, greater than expected for age. Several low suspicion but indeterminate solid pulmonary nodules measure up to 6 mm. These could be followed according to the attached recommendations. --S/P Cardiac Cath: There is a 70% stenosis of ostial acute marginal branch vessel. Medical management recommended. Dual antiplatelet therapy for 1 yr Lipitor started Also started on Metoprolol Needs follow up with Cardiology in 1 week Needs repeat Lipid panel test in 6 weeks Lifestyle modifications (2) Tobacco abuse: Counselled on importance of tobacco cessation Pulmonary Nodule: Several pulmonary Nodules noted on CT scan Advise to quit smoking FU as outpatient DVT Px: SCDs Code status: FULL PCP: No PCP. Patient prefers to establish PCP of his preference upon discharge Total Time Total Time Spent Total Time Spent (In Minutes): 36 Total Time Includes: Examination of the Patient, Discharge Planning, Medication Reconciliation, Communication With Other Providers and Other Discharge Plan Discharge Items Patient Disposition: Home - Self-Care Reason For Visit: NSTEMI Discharge Diagnosis: Moderate coronary artery disease Discharge Goals: Decrease discomfort, Improve disease control and Improve function Activity: Per 'Additional Instructions' section Lifting: Gradually increase as tolerated Exercise/Sports: Gradually increase as tolerated Non-emergency contact: Primary Care Provider and Robot Designer Call non-emergency contact if: you have any medication questions, your symptoms worsen, your pain is not controlled, your pain is worsening, your pain is unusual for you and you have a fever Diet: Heart Healthy Addtl Provider Instructions: Follow up with your PCP in 1 week as advised Follow up with your cloud engineer in 1 week Take medications as prescribed Get blood test (Lipid Panel ) in 6 weeks and follow up with your Physician You are noted to have Several pulmonary Nodules on CT scan. Follow up with your physician as outpatient Also recommend consume no more than 2 alcoholic beverages in any one sitting. Dietary modifications recommended including limiting intake of saturated fat, cholesterol, and simple sugars. Quit tobacco use as advised Prescriptions: New atorvastatin 40 mg Tablet 80 mg PO HS 30 Days Qty: 60 RF: 1 clopidogrel 75 mg Tablet 75 mg PO QAM 30 Days Qty: 30 RF: 1 metoprolol succinate 25 mg Tablet Extended Release 24 Hr 25 mg PO QAM 30 Days Qty: 30 RF: 1 aspirin [Aspirin Low Dose] 81 mg tablet,delayed release (DR/EC) 81 mg PO DAILY Qty: 30 RF: 0 No Action No Known Home Medications RF: 0 Visit Report Forms: [facility] [facility] Stand-Alone Forms: [facility] [facility] Discharge Orders: Discharge Order (Routine); Ordered 07/18/18 Ordered By: Sandip Mccarty Admission Data Admit Date/Time: 07/17/18 16:12 Attending Provider: Sandip Mccarty Admit Provider: Sandip Mccarty Primary Care Provider: PCP,NO Other Providers: Kel Byrd ; Sandip Mccarty Service: Telemetry Other Interventions: Discharge Summary Assessment (RN) Last Done: 07/18/18 13:54 Pending Studies at Discharge: No DC Date/Time DO NOT enter until pt leaves facility: 07/18/18 14:23
== END 2018-07-18 14:23 | disposition home or self-care (01) | DRG 282 ==
LOC: ED 11:31 → 2E 16:12